=== PATIENT | female | born 1995 | race Two or more races ===

== ENCOUNTER 2019-06-11 10:45 | Emergency (ER) | payer OTHER, SELFPAY ==
[2019-06-11 10:49] VITALS: BP 118/62; PULSE 108; RESP 16; TEMP 36.5; O2SAT 99
--- NOTE | 2019-06-11 11:15 | ED.URI ---
HPI - URI/Sore Throat General Chief Complaint: Upper Respiratory Infection Stated Complaint: CHILLS/SORE THROAT/PRESSURE Time Seen by Provider: 06/11/19 11:00 Source: patient and RN notes reviewed History of Present Illness HPI Narrative: Patient is a 23-year-old female presents the urgent care with complaints of sore throat, chills, sweats, nausea. Patient states that it started last Sunday and she was tested for strep Sunday at the school clinic. Patient states that the strep was negative at school. Patient has been taking Advil and trying to increase her water intake. States that she has felt a lot of fatigue over the last few days. Denies any known exposure to mono. No other acute complaints. No acute distress noted. Patient aware the plan of care. Related Data Allergies Allergy/AdvReac Type Severity Reaction Status Date / Time No Known Allergies Allergy Unknown Unverified 01/24/19 12:26 Review of Systems Review of Systems: Narrative: CONSTITUTIONAL: Reports a fever, chills, sweats. reports of fatigue EYES: Denies visual changes, redness, or discharge. ENT: Reports of sore throat cARDIOVASCULAR: Denies chest pain, palpitations, or edema. RESPIRATORY: Denies cough or dyspnea. GASTROINTESTINAL: reports of intermittent nausea GENITOURINARY: Denies dysuria or hematuria. SKIN: Denies rash or itching. MUSCULOSKELETAL: Denies back pain, joint pain, or myalgia. NEUROLOGIC: Denies headache, numbness, or weakness. All other systems reviewed are negative, except as documented in HPI. [facility] Social History Social History Gender identity (if verbalized by the patient): Female Comments At the time of my signature, I reviewed and agree with the nursing past medical, surgical, social, and family history. There is no relevant family history pertinent to the patient complaint. Exam Narrative: Exam Narrative: GENERAL: This is a well-nourished, well-developed patient, appears fatigued HEAD: normocephalic, atraumatic. EYES: PERRL. Sclera clear/white. Vision is grossly intact. EARS: External ears normal, auditory canals clear and without drainage, TMs normal without perforation. Hearing grossly intact. NOSE: External nose normal with no obvious nasal discharge, nares without redness, no rhinorrhea. THROAT: Mucous membranes moist, moderate erythema noted to posterior oropharynx with noted right excudate without ulceration or tonsilar edema NECK: Neck supple, non-tender mild bilateral submandibular t lymphadenopathy ABDOMINAL: non-tender CARDIOVASCULAR: Regular rate and rhythm without murmurs, gallops, or rubs. RESPIRATORY: Clear to auscultation. Breath sounds equal bilaterally. No wheezes, rales, or rhonchi. SKIN: warm, intact with no suspicious lesions or rash, good texture and turgor. NEURO: awake, alert, and oriented to person, place and time. There were no obvious focal neurologic abnormalities. EXTREMITIES: No clubbing, cyanosis, or edema. Course Vital Signs Vital signs: Vital Signs Temperature 97.7 F 06/11/19 10:49 Pulse Rate 108 H 06/11/19 10:49 Respiratory Rate 16 06/11/19 10:49 Blood Pressure 118/62 06/11/19 10:49 Pulse Oximetry 99 06/11/19 10:49 Temperature 97.7 F 06/11/19 10:49 Pulse Rate 108 H 06/11/19 10:49 Respiratory Rate 16 06/11/19 10:49 Blood Pressure 118/62 06/11/19 10:49 Pulse Oximetry 99 06/11/19 10:49 reviewed MDM - URI/Sore Throat MDM Narrative Medical decision making narrative: Reviewed lab results with the patient. She is aware that her strep swab was negative. Educated her on culture and we will call within 72 hours if culture is positive and antibiotics are necessary. Patient is also aware that Monospot was negative. However, in clinic Monospot is not typically very accurate. Advised the patient if she continues to have extreme fatigue with any tonsillar swelling or difficulty swallowing associated with chills, sweats, fever?go to the emergency room.
== END 2019-06-11 11:35 | disposition home or self-care (01) ==
PROVIDERS: Emergency Provider Nurse Practitioner Family
DX: B34.9 Viral infection, unspecified (principal); J02.9 Acute pharyngitis, unspecified
CPT/HCPCS: 86308; 87081; 87880; 99213; G0463

== ENCOUNTER → 2019-12-04 09:01 | Outpatient (CLI) | payer OTHER, SELFPAY ==
--- NOTE | ~2019-12-04 | US_ITS ---
EXAMINATION: US breast LT limited HISTORY: Overdue follow-up for probably benign sonographically detected left breast mass TECHNIQUE: Limited left breast ultrasound was performed. COMPARISON: 03/28/2017 FINDINGS: The previously described sonographically detected left breast mass at the 11:00 location is no longer identified. No suspicious cystic or solid mass is identified. IMPRESSION: Interval resolution of the previously described left breast mass. BI-RADS Category 1: Negative Reviewed, dictated and finalized at location A.
== END ==
PROVIDERS: Visit Provider Nurse Practitioner
DX: R92.8 Other abnormal and inconclusive findings on diagnostic imaging of breast (principal)
CPT/HCPCS: 76642

== ENCOUNTER 2020-10-18 08:52 | Emergency (ER) | payer OTHER, SELFPAY ==
[2020-10-18] VITALS (7 sets, daily range): BP systolic 105–114; BP diastolic 67–75; PULSE 72–78; RESP 15–16; TEMP 36.8; O2SAT 98–100
--- NOTE | 2020-10-18 09:35 | ED.GENADULT ---
HPI - General Adult General Chief complaint: Upper Respiratory Infection Stated complaint: MULT C/O, URI SYMPTOMS Time Seen by Provider: 10/18/20 08:55 History of Present Illness HPI narrative: Patient is a 25-year-old female who presents ER with cold symptoms. She reports she has been having sinus congestion for several weeks. Associate with cough. No shortness of breath. Today she lost her voice which is of increasing concern for her. No difficulty breathing or swallowing. No stridor. No known sick contacts. She has both of her Covid vaccinations but has some concerns for henri Covid. Denies fevers or chills or sweats. Patient has some discomfort in her throat and chest when she is coughing and has not had posttussive emesis but feels like she is going to vomit at times. Patient is only taking Tylenol at home. Related Data Allergies Allergy/AdvReac Type Severity Reaction Status Date / Time No Known Allergies Allergy Unknown Unverified 10/18/20 09:36 Review of Systems Review of Systems: All systems reviewed & are unremarkable except as noted in HPI and below Constitutional: Constitutional: Denies chills, Reports fatigue and Denies fever(s) ENT: Denies dysphagia, Reports nasal congestion and Reports sore throat Cardiovascular: Cardiovascular: Denies chest pain, Denies rapid heart rate and Denies radiating jaw, neck or arm pain Respiratory: Respiratory: Reports cough, Denies dyspnea and Denies wheezing Gastrointestinal: Gastrointestinal: Denies abdominal pain, Reports nausea and Denies vomiting PMFSH Past Medical History Medical History (Updated 10/18/20 @ 09:39 by Kevin Rivero MD) Healthy female adult Surgical History Surgical History (Updated 10/18/20 @ 09:37 by Kevin Rivero MD) No history of previous surgery Social History Social History (System 09/11/19 @ 09:34 by Kena Dupont) Smoking status: Never smoker Second hand tobacco smoke exposure: No Alcohol intake: never Gender identity (if verbalized by the patient): Female Exam Narrative: Exam Narrative: GENERAL: Well-appearing, well-nourished, and in no acute distress. HEAD: Normocephalic, atraumatic. ENT: Mucous membranes moist. No pharyngeal gel erythema or postnasal drip noted. Tonsils normal in size without hypertrophy or exudate. Uvula midline and nonedematous. Tolerating oral secretions without issue. NECK: Supple. CHEST: Clear to auscultation. No respiratory distress. HEART: Regular rate and rhythm. Normal peripheral pulses. EXTREMITIES: Normal range of motion. No edema. NEURO: Alert and oriented x3. PSYCH: Normal mood and affect. Course Course Emergency Course: Patient swabbed for Covid. Will give a work note. Discussed supportive therapy at home and patient verbalized understanding. Discharge Plan Discharge Clinical Impression: Laryngitis, Person under investigation for COVID-19 Patient Disposition: Home, Self-Care Condition: Stable Instructions: Laringitis (ED), COVID-19 (Coronavirus Disease 2019) (ED) Additional Instructions: Return to the ER if you cannot breathe, you cannot keep down food or water, you have loss of consciousness, you have any additional concerns. Self isolate until you receive a negative Covid test. Prescriptions: New pseudoephedrine-guaifenesin [Mucinex D] 60-600 mg tablet extended release 12 hr 1 tablet PO BID PRN (Reason: cold symptoms) Qty: 14 RF: 0 benzonatate [Tessalon Perles] 100 mg capsule 100 mg PO TID PRN (Reason: cough) Qty: 14 RF: 0 Cepacol Sore Throat (catrachita-men) 15-2.3 mg lozenge 1 ashley PO PRN Qty: 16 RF: 0 No Action methylprednisolone [Medrol (Azael)] 4 mg tablets,dose pack See Rx Instructions .ROUTE .COMPLEX Qty: 21 RF: 0 Follow-up/Referrals: Wily,Carina Minaya MD [Primary Care Provider] - 1 Week Stand Alone Forms: Work/School Release IP
[2020-10-18 16:50] LABS: SARS-CoV-2 RNA PCR Negative
== END 2020-10-18 10:12 | disposition home or self-care (01) ==
PROVIDERS: Emergency Provider Emergency Medicine; PCP Family Medicine
DX: J04.0 Acute laryngitis (principal); Z20.828 Contact with and (suspected) exposure to other viral communicable diseases
CPT/HCPCS: 99283; C9803; U0003; U0005

== ENCOUNTER 2021-03-27 15:40 | Emergency (ER) | payer OTHER, SELFPAY ==
[2021-03-27 15:46] VITALS: BP 141/77; PULSE 116; RESP 18; TEMP 37.7; O2SAT 99
--- NOTE | 2021-03-27 15:50 | ED.GENADULT ---
HPI - General Adult General Chief complaint: Shortness of Breath/Dyspnea Stated complaint: Shortness of Breath Time Seen by Provider: 03/27/21 15:50 Source: patient Mode of arrival: ambulatory Limitations: no limitations History of Present Illness HPI narrative: 25-year-old female patient presents to the [facility] with complaints of shortness of breath and some chest pain. Patient states it started suddenly about 4 hours ago. Patient denies any history of heart or lung issues. 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 Denies ever having issues with anxiety in the past. Denies being ever treated for anxiety. Denies any sick symptoms at this time including fever, runny nose, coughing or any other concerning symptoms. Related Data Allergies Allergy/AdvReac Type Severity Reaction Status Date / Time No Known Allergies Allergy Unknown Verified 03/27/21 15:55 Review of Systems Review of Systems: CONSTITUTIONAL: Denies fever, chills, or sweats. EYES: Denies visual changes, redness, or discharge. ENT: Denies rhinorrhea, congestion, sore throat, or otalgia. CARDIOVASCULAR: Positive chest pain, palpitations, denies edema. RESPIRATORY: Denies cough, positive dyspnea. GASTROINTESTINAL: Denies abdominal pain, nausea, vomiting, or diarrhea. GENITOURINARY: Denies dysuria or hematuria. SKIN: Denies rash or itching. MUSCULOSKELETAL: Denies back pain, joint pain, or myalgia. NEUROLOGIC: Denies headache, numbness, or weakness. PSYCHIATRIC: Denies anxiety or depression. [facility] Past Medical History Medical History Healthy female adult Surgical History Surgical History No history of previous surgery Social History Social History Smoking status: Never smoker Second hand tobacco smoke exposure: No Alcohol intake: never Gender identity (if verbalized by the patient): Female Comments At the time of my signature I agree with nursing past medical history, surgical, social, and family history. There is no relevant family history pertinent to the presenting complaint. Exam Narrative: GENERAL: Well-appearing, well-nourished, and in no acute distress. Patient is shaking HEAD: Normocephalic, atraumatic. EYES: PERRLA and EOMI. ENT: Nares clear, no rhinorrhea or epistaxis. Mucous membranes moist. NECK: Supple. No lymphadenopathy CHEST: Clear to auscultation. No respiratory distress. HEART: Tachycardia rate and rhythm. No murmur heard. Normal peripheral pulses. ABDOMEN: Soft, nontender, nondistended, normal active bowel sounds. EXTREMITIES: Normal range of motion. No edema. SKIN: Warm, dry, no rash. NEURO: No focal deficits. Alert and oriented x3. Course Vital Signs Vital signs: Vital Signs Temperature 37.7 C H 03/27/21 15:46 Pulse Rate 116 H 03/27/21 15:46 Respiratory Rate 18 03/27/21 15:46 Blood Pressure 141/77 H 03/27/21 15:46 Pulse Oximetry 99 03/27/21 15:46 Temperature 37.7 C H 03/27/21 15:46 Pulse Rate 116 H 03/27/21 15:46 Respiratory Rate 18 03/27/21 15:46 Blood Pressure 141/77 H 03/27/21 15:46 Pulse Oximetry 99 03/27/21 15:46 Vital signs reviewed The patient has been informed that they may have pre-hypertension or Hypertension based on a BP reading in the department. I recommend that the patient call the primary care provider listed on their discharge instructions or a physician of their choice this week to arrange follow up for further evaluation of possible pre-hypertension or Hypertension Medical Decision Making Differential Diagnosis Differential Diagnosis: Differential diagnosis: GERD, URI, asthma bronchitis, pneumonia, COPD exacerbation, cardiac-related shortness of breath, AAA, spontaneous pneumothorax, pulmonar
--- NOTE | 2021-03-27 15:56 | ECG_ITS ---
Measurements Intervals [place] Rate: 96 P: 33 NC: 163 QRS: 63 QRSD: 97 T: 33 QT: 325 QTc: 411 Interpretive Statements SINUS RHYTHM WITH SINUS ARRHYTHMIA INCOMPLETE RIGHT BUNDLE BRANCH BLOCK BASELINE ARTIFACT- I, II, III, AVR, AVL, AVF, V1-V3 BORDERLINE ECG Electronically Signed On 03-27-2021 17:23:58 [employer] by Otto Garibay D.O.
== END 2021-03-27 16:23 | disposition home or self-care (01) ==
PROVIDERS: Emergency Provider Nurse Practitioner Family; PCP Family Medicine
DX: F41.9 Anxiety disorder, unspecified (principal); I45.10 Unspecified right bundle-branch block
CPT/HCPCS: 93005; 99213; G0463

== ENCOUNTER 2021-09-08 14:38 | Emergency (ER) | payer OTHER, SELFPAY ==
[2021-09-08 14:45] VITALS: BP 115/64; PULSE 75; RESP 16; TEMP 35.6; O2SAT 100
--- NOTE | 2021-09-08 15:22 | ED.EAR ---
HPI - Ear Problem General Chief complaint: Ear Stated complaint: burning sensation in throat Time Seen by Provider: 09/08/21 15:22 Source: patient Mode of arrival: ambulatory Limitations: no limitations History of Present Illness HPI Narrative: 26-year-old female presented for complaint of burning sore throat pain, onset this morning. She endorses also approximately 1 year history of left ear pain for which she had plan to see an ENT. She endorses since this throat pain started the left ear pain is worse. Reports mild sinus congestion. Denies cough, shortness of breath, nausea, vomiting, diarrhea, fevers or chills. She has not taken anything for symptoms. Denies sick contacts. MD Complaint: ear pain Related Data Allergies Allergy/AdvReac Type Severity Reaction Status Date / Time No Known Allergies Allergy Unknown Verified 03/27/21 15:55 Review of Systems Review of Systems: CONSTITUTIONAL: Denies malaise, chills, or fever. EYES: Denies visual changes, redness, or discharge. ENT: Denies sinus pain Reports ear pain and sore throat. CARDIOVASCULAR: Denies chest pain, palpitations, or edema. RESPIRATORY: Denies cough or dyspnea. GASTROINTESTINAL: Denies abdominal pain, nausea, vomiting, diarrhea SKIN: Denies rash or itching. MUSCULOSKELETAL: Denies myalgia. NEUROLOGIC: Denies headache. All systems reviewed & are unremarkable except as noted in HPI and below PMFSH Past Medical History Medical History Healthy female adult Surgical History Surgical History No history of previous surgery Social History Social History Smoking status: Never smoker Second hand tobacco smoke exposure: No Alcohol intake: never Gender identity (if verbalized by the patient): Female Comments At time of signature, agree with nursing past medical, surgical, social and family history. There is no relevant family history pertinent to the presenting complaint Exam Narrative: GENERAL: Ill-appearing, no acute distress. HEAD: Normocephalic EYES: conjunctivae clear ENT: Nares clear. Mucous membranes moist. TM pearly porter with normal light reflex bilaterally, left TM with fluid levels; no tragal tenderness. Hoarse voice. Oropharynx erythematous without lesions. Tonsils not enlarged and without exudate, no drooling, no hoarseness, no trismus, uvula midline. NECK: Supple. No lymphadenopathy CHEST: Clear to auscultation, breath sounds equal. HEART: Regular rate and rhythm. No murmur heard. SKIN: Warm, dry, no rash. Course Course Emergency Course: Patient is aware of diagnosis, understands and agrees to treatment plan. Anticipatory guidance given. Patient agrees to follow-up as directed and is aware of reasons to seek care at the emergency department. Portions of this record may have been created with voice recognition software Level of Care: Express Care Visit Vital Signs Vital signs: Vital Signs Temperature 96.1 F L 09/08/21 14:45 Pulse Rate 75 09/08/21 14:45 Respiratory Rate 16 09/08/21 14:45 Blood Pressure 115/64 09/08/21 14:45 Pulse Oximetry 100 09/08/21 14:45 Oxygen Delivery Room Air 09/08/21 14:45 Temperature 96.1 F L 09/08/21 14:45 Pulse Rate 75 09/08/21 14:45 Respiratory Rate 16 09/08/21 14:45 Blood Pressure 115/64 09/08/21 14:45 Pulse Oximetry 100 09/08/21 14:45 Oxygen Delivery Room Air 09/08/21 14:45 Reviewed Medical Decision Making MDM Narrative Medical decision making narrative: strep negative. Advised on supportive treatments. patient is non-toxic appearing and is in no distress. Patient is appropriate for outpatient treatment and follow-up. Differential Diagnosis Differential Diagnosis: Coronavirus, strep pharyngitis, allergic rhinitis, upper respiratory tract infection, sinusitis, rhinosinusitis, na
== END 2021-09-08 15:47 | disposition home or self-care (01) ==
PROVIDERS: Emergency Provider Nurse Practitioner Family; PCP Family Medicine
DX: J02.9 Acute pharyngitis, unspecified (principal)
CPT/HCPCS: 87081; 87880; 99213; G0463

== ENCOUNTER → 2022-01-17 11:06 | Outpatient (CLI) | payer OTHER, SELFPAY ==
--- NOTE | ~2022-01-17 | US_ITS ---
EXAMINATION: US pelvic complete DATE: 01/17/2022 12:15 INDICATION: Pelvic pain TECHNIQUE: Multiple transabdominal sonographic images of the pelvis were obtained. COMPARISON: None. FINDINGS: The uterus measures 8.6 x 3.3 x 7.1 cm. The endometrial complex measures 5 mm. The IUD appe ars to be in expected position. The right ovary measures 3 x 2.7 x 2.7 cm. The left ovary measures 3. 6 x 2 x 2 cm. There is normal vascular flow in the ovaries. There is no free fluid in the pelvis. IMPRESSION: 1. No sonographic correlate for the patient's symptoms. Reviewed, dictated and finalized at location A.
== END ==
PROVIDERS: PCP Nurse Practitioner; Visit Provider Nurse Practitioner
DX: R10.2 Pelvic and perineal pain (principal); Z97.5 Presence of (intrauterine) contraceptive device
CPT/HCPCS: 76856